=== PATIENT | male | born 1995 | race Two or more races ===

== ENCOUNTER 2022-05-01 13:37 | Emergency (ER) | payer SELFPAY ==
[2022-05-01] MEDS ORDERED: Ketorolac 60 MG/2 ML SDV IM ONE (15:03)
[2022-05-01] MEDS ORDERED: Orphenadrine 60 MG/2 ML Inj IM ONE (15:04)
== END 2022-05-01 16:20 | disposition home or self-care (01) ==
LOC: MW.ED 13:37
DX: S29.9XXA Unspecified injury of thorax, initial encounter (principal); X50.9XXA Other and unspecified overexertion or strenuous movements or postures, initial encounter
CPT/HCPCS: 71101; 81003; 96372; 99283; J1885; J2360; 99282